=== PATIENT | male | born 1995 | race Caucasian/White ===

== ENCOUNTER 2022-04-03 14:20 | Emergency (ER) | payer OTHER, SELFPAY ==
--- NOTE | 2022-04-03 14:30 | ED.MALEGU ---
HPI - Male Genitourinary General Chief complaint: Urogenital-Male Stated complaint: Possible UTI Time Seen by Provider: 04/03/22 14:34 Source: patient and RN notes reviewed Mode of arrival: ambulatory Limitations: no limitations History of Present Illness HPI Narrative: 26-year-old male presents to the [facility] with complaints of urinary symptoms. Patient states he has had burning with urination and penile discharge for about a week. He went to [facility] for the school and was tested for HIV and syphilis which he reports is negative. Patient also states that he was tested for chlamydia and states that was negative. Is unsure if the symptoms started before after his test. Has recently had unprotected sex. Related Data Sexually active: Yes Home Medications Medication Instructions Recorded Confirmed sertraline 50 mg tablet (Zoloft) 50 mg PO DAILY 04/03/22 04/03/22 Allergies Allergy/AdvReac Type Severity Reaction Status Date / Time No Known Allergies Allergy Verified 04/03/22 14:44 Review of Systems Review of Systems: All systems reviewed & are unremarkable except as noted in HPI and below Constitutional: Constitutional: Reports no additional constitutional complaints, Denies chills and Denies fever(s) Eyes: Eyes: Reports no additional eye complaints ENT: Reports system reviewed and no additional complaints, except as documented Cardiovascular: Cardiovascular: Reports no additional cardiovascular complaints Respiratory: Respiratory: Reports no additional respiratory complaints Gastrointestinal: Gastrointestinal: Reports no additional gastrointestinal complaints Genitourinary: Genitourinary: Reports as per HPI, Denies hematuria, Denies genital lesions, Denies genital pain, Denies flank pain, Reports penile discharge, Denies scrotal swelling and Denies testicular pain Musculoskeletal: Musculoskeletal: Reports no additional musculoskeletal complaints Integumentary/Breasts: Skin/Breast: Reports system reviewed and no additional complaints, except as docu Neurologic: Reports system reviewed and no additional complaints, except as documented Psychiatric: Psychiatric: Reports no additional psychiatric complaints Allergic/Immunologic: Allergic/Immunologic: Reports no additional allergic/immunologic complaints [facility] Past Medical History Medical History (Updated 04/03/22 @ 19:47 by Colette Asher APRN) Anxiety and depression Surgical History Surgical History (Updated 04/03/22 @ 19:47 by Colette Asher APRN) No pertinent past surgical history Social History Social History (Updated 04/03/22 @ 19:47 by Colette Asher APRN) Gender identity (if verbalized by the patient): Male Comments At the time of my signature, I reviewed and agree with the nursing past medical, surgical, social, and family history. There is no relevant family history pertinent to the patient complaint. Exam Const: General: healthy appearing, no acute distress and alert Nutritional Appearance: well nourished Orientation/consciousness: patient oriented x3 Limitations: no limitations HENMT: Head: normal to inspection Ears: external ears normal Eyes: General: appearance normal, both eyes and all related structures Pupils: Equal, round and reactive pupils present Neck: Neck: normal visual inspection, no lymphadenopathy and no meningeal signs Chest: Chest palpation & inspection: normal inspection of the chest Resp: Effort & Inspection: normal respiratory effort and no use of accessory muscles Auscultation: clear to auscultation bilaterally, no crackles, no rales, no rhonchi and no wheezes Cardio: Rate: regular rate Rhythm: regular rhythm GI: GI Palp: Yes Soft to palpation and No Tenderness to palpation present (GI) : General: Yes no CVA tenderness Male General Exam: Yes normal external exam, No ecchymosis and No erythema Penis: Yes normal penis Meatus: meatus normal Scrotum: scrotum normal
[2022-04-03 14:34] VITALS: BP 137/73; PULSE 58; RESP 16; TEMP 36.7; O2SAT 100
[2022-04-03] MEDS: cefTRIAXone 500 MG, LIDOCAINE HCL 1% LOCAL INJ 1 ML IM (15:08)
== END 2022-04-03 15:30 | disposition home or self-care (01) ==
PROVIDERS: Emergency Provider Nurse Practitioner
DX: R36.9 Urethral discharge, unspecified (principal); R30.0 Dysuria; F41.9 Anxiety disorder, unspecified; F32.A Depression, unspecified
CPT/HCPCS: 81003; 87491; 87591; 87661; 96372; 99213; G0463; J0696